=== PATIENT | male | born 1970 | race Two or more races ===

== ENCOUNTER 2022-06-02 09:50 | Emergency (ER) | payer SELFPAY ==
[2022-06-02] MEDS ORDERED: Bacitracin/Neomycin/Polymyxin B Oint 0.9 GM U/D Packet TOP ONE (10:45)
== END 2022-06-02 11:15 | disposition home or self-care (01) ==
LOC: CC.ED 09:50
DX: S93.402A Sprain of unspecified ligament of left ankle, initial encounter (principal); S80.01XA Contusion of right knee, initial encounter; S80.211A Abrasion, right knee, initial encounter; S80.811A Abrasion, right lower leg, initial encounter; W20.8XXA Other cause of strike by thrown, projected or falling object, initial encounter; Y92.69 Other specified industrial and construction area as the place of occurrence of the external cause
CPT/HCPCS: 73562-RT; 73590-RT; 73610-LT; 99283